=== PATIENT | female | born 1935 | race Caucasian/White ===

== ENCOUNTER 2017-09-11 15:26 | Inpatient (IN) | payer OTHER, MEDICARE ==
[~2017-09-11] VITALS: Ht 149.9 cm; Wt 63.9 kg
[~2017-09-11 15:26] MED LIST: ALLOPURINOL100 MG PO; ALLOPURINOL300 MG PO; APRESOLINE25 MG PO; APRESOLINE50 MG PO; ASPIR-LOW81 MG PO; ASPIRIN325 MG PO; ATORVASTATIN CA40 MG PO; Ascorbic Acid,Ester- PO; BESIVANCE5 ML LEFT EYE; CATAPRES0.3 MG PO; CLONIDINE HCL0.1 MG PO; CLONIDINE HCL0.2 MG PO; COLACE100 MG PO; Catapres PO; Colace PO; DOXAZOSIN MESYLA2 MG PO; DUREZOL 0.100 DROP/5 LEFT EYE; Ecotrin PO; FISH OIL 1,2001 EAC3 PO; FISH OIL 1,2001 EAC4 PO; FUROSEMIDE20 MG PO; IMDUR60 MG PO; INDOCIN PO; ISOSORBIDE MONO60 MG PO; KLOR-CON M1010 MEQ PO; LASIX20 MG PO; LEVEMIR FL100 UNIT/1 SC; LEVEMIR FL100 UNITS/ SC; LIPITOR40 MG PO; LO-DOSE ASPIRIN81 M1 PO; LOPRESSOR100 M1 PO; LOPRESSOR25 MG PO; LOPRESSOR50 MG PO; LOSARTAN POTASS50 MG PO; Lipitor PO; Lopressor PO; METOPROLOL SUC100 MG PO; NIFEDIPINE ER90 MG PO; NITROGLYCERIN0.4 MG SL; NITROSTAT0.4 MG SL; NOVOLOG 10100 UNITS/ SC; NOVOLOG PE100 UNITS/ SC; NOVOLOG100 UNIT/1 SC; Nitrostat,NitroQuick SL; Omega III EPA + DHA PO; PANTOPRAZOLE SO40 MG PO; PERCOCET 5/31 TABLET PO; PLAVIX75 MG PO; PROCARDIA XL90 MG PO; PROLENSA1.6 ML LEFT EYE; PROTONIX40 MG PO; Procardia XL,Adalat PO; Protonix PO; RESTORIL7.5 MG PO; ROCALTROL0.25 MCG PO; ULORIC40 MG PO; VITAMIN C1000 MG PO; VITAMIN D250000 UNIT PO; VOLTAREN 1% GE100 GM TP; ZINC SULFATE220 M1 PO; ZINC SULFATE220 MG PO; ZINC50 M1 PO; ZYLOPRIM300 MG PO; Zyloprim PO
[2017-09-11 16:04] LABS: HEMATOCRIT 28.7 % (36.0-46.0); MCH 29.1 PG (29.0-34.0); MCHC 33.4 G/DL (30.0-36.0); MEAN PLAT.VOLUME 11.4 uM^3 (9.5-12.4); PLATELET COUNT 159 K/uL (156-360); RBC DIS.WIDTH-CV 13.1 % (11.8-14.6); RBC DIS.WIDTH-SD 41.2 % (39-53); WHITE BLOOD COUNT 7.2 K/uL (4.1-10.2)
[2017-09-11 16:17] LABS: CHLORIDE 108 mEq/L (99-109); POTASSIUM 3.8 mEq/L (3.7-5.4); SODIUM 139 mEq/L (136-147)
[2017-09-11 16:18] LABS: INTER. NORMALIZED RATIO 1.1; MAGNESIUM 1.4 mg/dL (1.3-2.7); PROTHROMBIN TIME 11.8 SEC (10.2-12.9)
[2017-09-11 16:20] LABS: ANION GAP 14 MEQ/L (2-14); PTT 28.9 SEC (25-37)
[2017-09-11 16:22] LABS: GFR ESTIMATE (CALCULATED) 13 mL/min/
[2017-09-11 16:23] LABS: UREA NITROGEN (BUN) 47 mg/dL (9-23)
[2017-09-11 16:27] LABS: TROP-I INTERPRETATION POSITIVE
[2017-09-11 16:28] LABS: GLUCOSE 272 mg/dL (70-99); TROPONIN-I 1.54 ng/mL (0.0-0.30)
[2017-09-11] MEDS ORDERED: NOVOLOG100 UNIT/1 SC (17:50)
[2017-09-11] MEDS ORDERED: DOXAZOSIN MESYLA2 MG PO (18:01)
[2017-09-11] MEDS ORDERED: LOPRESSOR25 MG PO (18:03)
[2017-09-11] MEDS ORDERED: ADVIL PM1 TABLET PO (18:12)
[2017-09-11] MEDS ORDERED: IMDUR60 MG PO (18:16)
[2017-09-11 19:45] VITALS: BP 181/79
[2017-09-11] MEDS ORDERED: LOPRESSOR100 M1 PO (22:11)
[2017-09-11 23:00] VITALS: BP 171/87
[2017-09-11 23:42] LABS: INTER. NORMALIZED RATIO 1.1; PROTHROMBIN TIME 12.2 SEC (10.2-12.9)
[2017-09-11 23:45] LABS: PTT 91.8 SEC (25-37)
[2017-09-12 00:15] LABS: TROP-I INTERPRETATION POSITIVE
[2017-09-12 03:00] VITALS: BP 164/73
[2017-09-12 05:38] LABS: HEMATOCRIT 26.6 % (36.0-46.0); MCH 27.9 PG (29.0-34.0); MCHC 32.3 G/DL (30.0-36.0); MCV 86.4 FL (83-99); MEAN PLAT.VOLUME 10.6 uM^3 (9.5-12.4); PLATELET COUNT 179 K/uL (156-360); RBC DIS.WIDTH-CV 13.2 % (11.8-14.6); RBC DIS.WIDTH-SD 41.1 % (39-53); RED BLOOD COUNT 3.08 M/uL (3.80-5.20); WHITE BLOOD COUNT 5.9 K/uL (4.1-10.2)
[2017-09-12 06:22] LABS: TROP-I INTERPRETATION POSITIVE; TROPONIN-I 2.43 ng/mL (0.0-0.30)
[2017-09-12 06:47] LABS: Estimated Average Glucose 134 mg/dL (70-123); HEMOGLOBIN A1c (GLYCOHEMOGLOB) 6.3 % HGB (Below 5.7)
[2017-09-12 07:34] VITALS: BP 192/86
[2017-09-12 07:42] LABS: POINT-OF-CARE METER ID UU14174216
[2017-09-12 11:26] LABS: POINT-OF-CARE METER ID UU14314088
[2017-09-12 12:14] VITALS: BP 147/79
[2017-09-12 13:30] LABS: TROP-I INTERPRETATION POSITIVE; TROPONIN-I 1.56 ng/mL (0.0-0.30)
[2017-09-12 13:49] LABS: ANION GAP 11 MEQ/L (2-14); CHLORIDE 108 MEQ/L (99-109); GFR ESTIMATE (CALCULATED) 15 mL/min/; POTASSIUM 3.9 MEQ/L (3.7-5.4); SAMPLE HEMOLYSIS CHECK 0; SAMPLE ICTERIC CHECK 0; SAMPLE LIPEMIA CHECK 0; SODIUM 141 MEQ/L (136-147); UREA NITROGEN (BUN) 41 mg/dL (9-23)
[2017-09-12 13:58] LABS: GLUCOSE 101 mg/dL (70-99)
[2017-09-12 16:53] LABS: POINT-OF-CARE METER ID UU14314088
[2017-09-12 17:06] VITALS: BP 149/87
[2017-09-12 18:44] LABS: ADD MIUA? YES; BILIRUBIN NEGATIVE; BLOOD NEGATIVE; COLOR YELLOW ((YELLOW)); GLUCOSE (STRIP) 50; KETONES NEGATIVE; LEUKOCYTES NEGATIVE; NITRITE NEGATIVE; PROTEIN (STRIP) >=500; UROBILINOGEN 0.2 MG/DL (0.2-1.0)
[2017-09-12 18:54] LABS: BACTERIA NONE SEEN /HPF; EPITHELIAL CELLS RARE /HPF; MUCUS TRACE /LPF; RED BLOOD CELLS 0-5 /HPF (0-5); WHITE BLOOD CELLS 0-5 /HPF (0-5)
[2017-09-12 19:00] VITALS: BP 176/64
[2017-09-12 20:54] LABS: POINT-OF-CARE METER ID UU14314088
[2017-09-12 23:00] VITALS: BP 148/56
[2017-09-13 04:30] VITALS: BP 129/60
[2017-09-13 05:39] LABS: EOSINOPHIL (%) 5.1 % (0-5); EOSINOPHIL COUNT 0.3 K/uL (0-0.3); HEMATOCRIT 27.8 % (36.0-46.0); IMMATURE GRANULOCYTE (%) 0.4 % (0.0-0.7); MCH 28.8 PG (29.0-34.0); MCHC 32.4 G/DL (30.0-36.0); MCV 88.8 FL (83-99); MONOCYTE (%) 11.6 % (3-12); MONOCYTE COUNT 0.6 K/uL (0-0.8); NEUTROPHIL (%) 61.4 % (45-76); PLATELET COUNT 168 K/uL (156-360); RBC DIS.WIDTH-CV 13.3 % (11.8-14.6); RBC DIS.WIDTH-SD 43.1 % (39-53); RED BLOOD COUNT 3.13 M/uL (3.80-5.20); WHITE BLOOD COUNT 4.9 K/uL (4.1-10.2)
[2017-09-13 05:55] LABS: INTER. NORMALIZED RATIO 1.1; PROTHROMBIN TIME 11.7 SEC (10.2-12.9)
[2017-09-13 06:00] LABS: PTT 28.2 SEC (25-37)
[2017-09-13 06:02] LABS: ANION GAP 11 MEQ/L (2-14); CHLORIDE 109 MEQ/L (99-109); GFR ESTIMATE (CALCULATED) 14 mL/min/; GLUCOSE 146 mg/dL (70-99); MAGNESIUM 1.4 mg/dl (1.3-2.7); SAMPLE HEMOLYSIS CHECK 0; SAMPLE ICTERIC CHECK 0; SAMPLE LIPEMIA CHECK 0; SODIUM 142 MEQ/L (136-147); UREA NITROGEN (BUN) 41 mg/dL (9-23)
[2017-09-13 07:35] VITALS: BP 168/74
[2017-09-13 08:20] LABS: POINT-OF-CARE METER ID UU14314088
[2017-09-13 11:06] LABS: POINT-OF-CARE METER ID UU14314088
[2017-09-13 11:26] VITALS: BP 146/58
[2017-09-13 15:56] VITALS: BP 152/74
[2017-09-13 16:31] LABS: POINT-OF-CARE METER ID UU13113698
[2017-09-13 18:56] VITALS: BP 153/68
[2017-09-13 20:55] LABS: POINT-OF-CARE METER ID UU13113698
[2017-09-13 23:10] VITALS: BP 139/65
[2017-09-14 03:57] VITALS: BP 158/63
[2017-09-14 05:53] LABS: HEMATOCRIT 25.1 % (36.0-46.0); MCH 28.1 PG (29.0-34.0); MCHC 31.9 G/DL (30.0-36.0); MCV 88.1 FL (83-99); MEAN PLAT.VOLUME 10.9 uM^3 (9.5-12.4); PLATELET COUNT 166 K/uL (156-360); RBC DIS.WIDTH-CV 13.2 % (11.8-14.6); RBC DIS.WIDTH-SD 42.2 % (39-53); RED BLOOD COUNT 2.85 M/uL (3.80-5.20); WHITE BLOOD COUNT 4.9 K/uL (4.1-10.2)
[2017-09-14 07:04] LABS: ANION GAP 10 MEQ/L (2-14); CHLORIDE 108 MEQ/L (99-109); GFR ESTIMATE (CALCULATED) 14 mL/min/; GLUCOSE 119 mg/dL (70-99); SAMPLE HEMOLYSIS CHECK 0; SAMPLE ICTERIC CHECK 0; SAMPLE LIPEMIA CHECK 0; SODIUM 140 MEQ/L (136-147); UREA NITROGEN (BUN) 45 mg/dL (9-23)
[2017-09-14 07:40] LABS: POINT-OF-CARE METER ID UU14174216
[2017-09-14 09:17] VITALS: BP 184/74
[2017-09-14 09:43] VITALS: BP 148/67
[2017-09-14 10:04] LABS: MAGNESIUM 1.4 mg/dl (1.3-2.7)
[2017-09-14 11:51] LABS: POINT-OF-CARE METER ID UU14174216
[2017-09-14 11:56] VITALS: BP 142/70
[2017-09-14 16:36] LABS: POINT-OF-CARE METER ID UU14174216
[2017-09-14 16:50] VITALS: BP 146/71
[2017-09-14 19:33] VITALS: BP 160/78
[2017-09-14] MEDS ORDERED: CLOPIDOGREL75 MG PO (21:25)
[2017-09-14] MEDS ORDERED: PLAVIX75 MG PO (21:34)
== END 2017-09-14 22:20 | disposition home health service (06) | DRG 281 ==
LOC: EME 15:26 → 4EAST 17:05 → EDOF 17:05 → ENRESERV 17:21 → 4EAST 19:48
PROVIDERS: Emergency Medicine; Internal Medicine; Internal Medicine Cardiovascular Disease; Internal Medicine Nephrology
DX: I21.4 Non-ST elevation (NSTEMI) myocardial infarction (principal); N17.9 Acute kidney failure, unspecified; E87.2 Acidosis; N18.5 Chronic kidney disease, stage 5; I13.11 Hypertensive heart and chronic kidney disease without heart failure, with stage 5 chronic kidney disease, or end stage renal disease; R00.0 Tachycardia, unspecified; I44.4 Left anterior fascicular block; E78.5 Hyperlipidemia, unspecified; E11.22 Type 2 diabetes mellitus with diabetic chronic kidney disease; D63.1 Anemia in chronic kidney disease; I25.10 Atherosclerotic heart disease of native coronary artery without angina pectoris; I12.9 Hypertensive chronic kidney disease with stage 1 through stage 4 chronic kidney disease, or unspecified chronic kidney disease; I27.20 Pulmonary hypertension, unspecified; I35.0 Nonrheumatic aortic (valve) stenosis; K21.9 Gastro-esophageal reflux disease without esophagitis; Z95.5 Presence of coronary angioplasty implant and graft; Z95.1 Presence of aortocoronary bypass graft; Z82.49 Family history of ischemic heart disease and other diseases of the circulatory system; Z91.041 Radiographic dye allergy status; Z90.49 Acquired absence of other specified parts of digestive tract; Z91.19 Patient's noncompliance with other medical treatment and regimen
CPT/HCPCS: 36415; 71020; 76770; 80048; 80069; 81003; 82607 GA; 82746 GA; 82948; 83036; 83540; 83735; 83880; 84100; 84466; 84484; 85025; 85027; 85045; 85610; 85730; 93005; 93306; 93975; 94799; 99281; 99285; J0881; J1815; J7030

== ENCOUNTER 2017-10-12 16:20 | Inpatient (IN) | payer OTHER, MEDICARE ==
[~2017-10-12] VITALS: Ht 149.9 cm; Wt 71.2 kg
[~2017-10-12 16:20] MED LIST changes: +ADVIL PM1 TABLET PO; +APRESOLINE100 MG PO; -APRESOLINE25 MG PO; +CARDURA2 M1 PO; +CLOPIDOGREL75 MG PO
[2017-10-12 17:19] LABS: CHLORIDE 119 mEq/L (99-109); POTASSIUM 3.9 mEq/L (3.7-5.4); SODIUM 143 mEq/L (136-147)
[2017-10-12 17:20] LABS: GLUCOSE 86 mg/dL (70-99)
[2017-10-12 17:22] LABS: ANION GAP 9 MEQ/L (2-14)
[2017-10-12 17:24] LABS: GFR ESTIMATE (CALCULATED) 12 mL/min/
[2017-10-12 17:25] LABS: UREA NITROGEN (BUN) 78 mg/dL (9-23)
[2017-10-12 17:26] LABS: HEMATOCRIT 29.5 % (36.0-46.0); MCH 28.2 PG (29.0-34.0); MCHC 30.8 G/DL (30.0-36.0); MCV 91.3 FL (83-99); RBC DIS.WIDTH-CV 14.1 % (11.8-14.6); RBC DIS.WIDTH-SD 47.1 % (39-53); RED BLOOD COUNT 3.23 M/uL (3.80-5.20); WHITE BLOOD COUNT 4.9 K/uL (4.1-10.2)
[2017-10-12 17:31] LABS: TROP-I INTERPRETATION NEGATIVE; TROPONIN-I 0.03 ng/mL (0.0-0.30)
[2017-10-12 17:43] LABS: MEAN PLAT.VOLUME 11.4 uM^3 (9.5-12.4); PLAT.SUFFICIENCY DECREASED; PLATELET CLUMPS N; PLATELET COUNT 113 K/uL (156-360)
[2017-10-12] MEDS ORDERED: PLAVIX75 MG PO (19:31)
[2017-10-12] MEDS ORDERED: CIPROFLOXACIN H10 ML BOTH EYES (19:31)
[2017-10-12 23:55] VITALS: BP 173/73
[2017-10-13 03:56] LABS: ADD MIUA? NO; BILIRUBIN NEGATIVE; BLOOD NEGATIVE; COLOR STRAW ((YELLOW)); GLUCOSE (STRIP) NEGATIVE; KETONES NEGATIVE; LEUKOCYTES NEGATIVE; NITRITE NEGATIVE; PROTEIN (STRIP) 30; SPECIFIC GRAVITY 1.005 (1.000-1.030); UCUL ADDED? NO; UROBILINOGEN 0.2 MG/DL (0.2-1.0)
[2017-10-13 06:05] LABS: HEMATOCRIT 28.3 % (36.0-46.0); MCH 28.1 PG (29.0-34.0); MCHC 30.4 G/DL (30.0-36.0); MCV 92.5 FL (83-99); PLATELET COUNT 106 K/uL (156-360); RBC DIS.WIDTH-CV 14.3 % (11.8-14.6); RBC DIS.WIDTH-SD 48.1 % (39-53); RED BLOOD COUNT 3.06 M/uL (3.80-5.20); WHITE BLOOD COUNT 4.4 K/uL (4.1-10.2)
[2017-10-13 06:52] LABS: ANION GAP 10 MEQ/L (2-14); CHLORIDE 116 MEQ/L (99-109); GFR ESTIMATE (CALCULATED) 11 mL/min/; GLUCOSE 123 mg/dL (70-99); SAMPLE HEMOLYSIS CHECK 0; SAMPLE ICTERIC CHECK 0; SAMPLE LIPEMIA CHECK 0; SODIUM 144 MEQ/L (136-147); UREA NITROGEN (BUN) 81 mg/dL (9-23)
[2017-10-13 07:42] LABS: Estimated Average Glucose 108 mg/dL (70-123); HEMOGLOBIN A1c (GLYCOHEMOGLOB) 5.4 % HGB (Below 5.7)
[2017-10-13 08:21] VITALS: BP 187/79
[2017-10-13 11:44] LABS: POINT-OF-CARE METER ID UU13113725
[2017-10-13 12:19] VITALS: BP 193/80
[2017-10-13 12:48] VITALS: BP 134/56
[2017-10-13 15:25] VITALS: BP 161/74
[2017-10-13 16:17] LABS: POINT-OF-CARE METER ID UU13113725
[2017-10-13 19:56] VITALS: BP 133/61
[2017-10-13 20:56] LABS: POINT-OF-CARE METER ID UU13113725
[2017-10-13 23:47] VITALS: BP 142/52
[2017-10-14 02:20] LABS: POINT-OF-CARE METER ID UU13113774
[2017-10-14 03:43] VITALS: BP 130/62
[2017-10-14 06:12] LABS: POINT-OF-CARE METER ID UU13113774
[2017-10-14 06:36] LABS: ANION GAP 12 MEQ/L (2-14); CHLORIDE 116 MEQ/L (99-109); GFR ESTIMATE (CALCULATED) 12 mL/min/; POTASSIUM 3.8 MEQ/L (3.7-5.4); SAMPLE HEMOLYSIS CHECK 0; SAMPLE ICTERIC CHECK 0; SAMPLE LIPEMIA CHECK 0; SODIUM 146 MEQ/L (136-147); UREA NITROGEN (BUN) 77 mg/dL (9-23)
[2017-10-14 06:39] LABS: GLUCOSE 29 mg/dL (70-99)
[2017-10-14 07:26] VITALS: BP 138/58
[2017-10-14 11:38] VITALS: BP 170/52
[2017-10-14 11:58] LABS: POINT-OF-CARE METER ID UU13113725
[2017-10-14 15:17] VITALS: BP 138/70
[2017-10-14 15:54] LABS: POINT-OF-CARE METER ID UU13113725
[2017-10-14 19:10] VITALS: BP 156/64
[2017-10-14 21:24] LABS: POINT-OF-CARE METER ID UU13113725
[2017-10-14 23:37] VITALS: BP 149/66
[2017-10-15 04:36] VITALS: BP 122/58
[2017-10-15 06:04] LABS: POINT-OF-CARE METER ID UU13113774
[2017-10-15 06:10] LABS: EOSINOPHIL (%) 4.2 % (0-5); EOSINOPHIL COUNT 0.2 K/uL (0-0.3); HEMATOCRIT 27.2 % (36.0-46.0); IMMATURE GRANULOCYTE (%) 0.2 % (0.0-0.7); MCH 27.7 PG (29.0-34.0); MCHC 30.1 G/DL (30.0-36.0); MCV 91.9 FL (83-99); MEAN PLAT.VOLUME 11.8 uM^3 (9.5-12.4); MONOCYTE (%) 8.6 % (3-12); MONOCYTE COUNT 0.4 K/uL (0-0.8); NEUTROPHIL (%) 65.6 % (45-76); PLATELET COUNT 100 K/uL (156-360); RBC DIS.WIDTH-SD 47.1 % (39-53); RED BLOOD COUNT 2.96 M/uL (3.80-5.20); WHITE BLOOD COUNT 4.5 K/uL (4.1-10.2)
[2017-10-15 06:32] LABS: ANION GAP 13 MEQ/L (2-14); CHLORIDE 115 MEQ/L (99-109); GFR ESTIMATE (CALCULATED) 12 mL/min/; POTASSIUM 3.8 MEQ/L (3.7-5.4); SAMPLE HEMOLYSIS CHECK 0; SAMPLE ICTERIC CHECK 0; SAMPLE LIPEMIA CHECK 0; SODIUM 145 MEQ/L (136-147); UREA NITROGEN (BUN) 73 mg/dL (9-23)
[2017-10-15 06:34] LABS: GLUCOSE 87 mg/dL (70-99)
[2017-10-15 08:02] VITALS: BP 138/83
[2017-10-15 11:35] LABS: POINT-OF-CARE METER ID UU13113725
[2017-10-15 11:54] VITALS: BP 136/77
[2017-10-15 15:36] VITALS: BP 143/76
[2017-10-15 16:15] LABS: POINT-OF-CARE METER ID UU13113725
[2017-10-15 19:27] VITALS: BP 154/69
[2017-10-15 21:20] LABS: POINT-OF-CARE METER ID UU13113774
[2017-10-15 23:33] VITALS: BP 121/59
[2017-10-16 03:23] VITALS: BP 135/72
[2017-10-16 06:11] LABS: POINT-OF-CARE METER ID UU13113774
[2017-10-16 06:25] LABS: ANION GAP 10 MEQ/L (2-14); CHLORIDE 117 MEQ/L (99-109); GFR ESTIMATE (CALCULATED) 14 mL/min/; GLUCOSE 102 mg/dL (70-99); POTASSIUM 3.8 MEQ/L (3.7-5.4); SAMPLE HEMOLYSIS CHECK 0; SAMPLE ICTERIC CHECK 0; SAMPLE LIPEMIA CHECK 0; SODIUM 145 MEQ/L (136-147); UREA NITROGEN (BUN) 63 mg/dL (9-23)
[2017-10-16 07:15] VITALS: BP 156/74
[2017-10-16 11:00] VITALS: BP 133/63
[2017-10-16 11:45] LABS: POINT-OF-CARE METER ID UU13113725
[2017-10-16 16:12] LABS: POINT-OF-CARE METER ID UU13113774
[2017-10-16 16:38] VITALS: BP 150/88
[2017-10-16 19:32] VITALS: BP 173/75
[2017-10-16 21:09] LABS: POINT-OF-CARE METER ID UU13113725
[2017-10-16 21:42] LABS: POINT-OF-CARE METER ID UU13113725
[2017-10-16 21:42] LABS: POINT-OF-CARE METER ID UU13113774
[2017-10-16 23:52] VITALS: BP 161/70
[2017-10-17 03:51] VITALS: BP 177/75
[2017-10-17 04:18] VITALS: BP 150/60
[2017-10-17 06:01] LABS: POINT-OF-CARE METER ID UU13113725
[2017-10-17 07:17] VITALS: BP 170/52
[2017-10-17 09:18] LABS: ANION GAP 10 MEQ/L (2-14); CHLORIDE 115 MEQ/L (99-109); GFR ESTIMATE (CALCULATED) 16 mL/min/; GLUCOSE 151 mg/dL (70-99); POTASSIUM 3.8 MEQ/L (3.7-5.4); SAMPLE HEMOLYSIS CHECK 0; SAMPLE ICTERIC CHECK 0; SAMPLE LIPEMIA CHECK 0; SODIUM 144 MEQ/L (136-147); UREA NITROGEN (BUN) 59 mg/dL (9-23)
[2017-10-17 11:15] VITALS: BP 177/77
[2017-10-17 15:42] VITALS: BP 180/76
[2017-10-17 15:58] LABS: POINT-OF-CARE METER ID UU13113725
[2017-10-17] MEDS ORDERED: LEVEMIR100 UNIT/2 SC (18:54)
== END 2017-10-17 20:35 | disposition home or self-care (01) | DRG 292 ==
LOC: EME 16:20 → 5EAST 21:45 → EDOF 21:45 → ENRESERV 22:30 → 5EAST 23:41
PROVIDERS: Internal Medicine; Internal Medicine Nephrology
DX: I50.43 Acute on chronic combined systolic (congestive) and diastolic (congestive) heart failure (principal); I11.0 Hypertensive heart disease with heart failure; E78.5 Hyperlipidemia, unspecified; E11.21 Type 2 diabetes mellitus with diabetic nephropathy; I13.2 Hypertensive heart and chronic kidney disease with heart failure and with stage 5 chronic kidney disease, or end stage renal disease; I25.10 Atherosclerotic heart disease of native coronary artery without angina pectoris; M19.90 Unspecified osteoarthritis, unspecified site; N18.5 Chronic kidney disease, stage 5; D63.1 Anemia in chronic kidney disease; Z79.4 Long term (current) use of insulin; E11.649 Type 2 diabetes mellitus with hypoglycemia without coma; N25.81 Secondary hyperparathyroidism of renal origin; E11.22 Type 2 diabetes mellitus with diabetic chronic kidney disease; K21.9 Gastro-esophageal reflux disease without esophagitis; E66.9 Obesity, unspecified; Z96.653 Presence of artificial knee joint, bilateral; Z68.31 Body mass index [BMI] 31.0-31.9, adult; Z95.5 Presence of coronary angioplasty implant and graft; Z95.1 Presence of aortocoronary bypass graft; Z90.49 Acquired absence of other specified parts of digestive tract; I25.2 Old myocardial infarction; M06.9 Rheumatoid arthritis, unspecified
CPT/HCPCS: 71020; 80048; 80069; 81003; 82948; 83036; 84484; 85025; 85027; 87493; 87506; 93005; 99281; 99285; J0881; J1644; J1815; J1940

== ENCOUNTER 2017-11-12 11:01 | Inpatient (IN) | payer OTHER, MEDICARE ==
[~2017-11-12] VITALS: Ht 149.9 cm; Wt 61.7 kg
[~2017-11-12 11:01] MED LIST changes: +CIPROFLOXACIN H10 ML BOTH EYES; +LEVEMIR100 UNIT/2 SC
[2017-11-12 11:50] LABS: BASOPHIL (%) 0.5 % (0-1); EOSINOPHIL (%) 2.9 % (0-5); EOSINOPHIL COUNT 0.1 K/uL (0-0.3); HEMATOCRIT 29.7 % (36.0-46.0); HEMOGLOBIN 9.6 G/DL (11.9-15.5); IMMATURE GRANULOCYTE (%) 0.7 % (0.0-0.7); LYMPHOCYTE (%) 20.8 % (15-42); LYMPHOCYTE COUNT 0.9 K/uL (1.0-2.8); MCH 27.3 PG (29.0-34.0); MCHC 32.3 G/DL (30.0-36.0); MONOCYTE (%) 8.8 % (3-12); MONOCYTE COUNT 0.4 K/uL (0-0.8); NEUTROPHIL (%) 66.3 % (45-76); NEUTROPHIL COUNT 2.8 K/uL (1.8-6.4); PLATELET COUNT 159 K/uL (156-360); RBC DIS.WIDTH-SD 39.7 % (39-53); RED BLOOD COUNT 3.52 M/uL (3.80-5.20); WHITE BLOOD COUNT 4.2 K/uL (4.1-10.2)
[2017-11-12 11:55] LABS: ALBUMIN 3.6 g/dL (3.2-4.8); CHLORIDE 105 mEq/L (99-109); POTASSIUM 3.9 mEq/L (3.7-5.4); SODIUM 143 mEq/L (136-147)
[2017-11-12 11:56] LABS: MCV 84.4 FL (83-99)
[2017-11-12 11:57] LABS: GLUCOSE 152 mg/dL (70-99); TOTAL PROTEIN 6.7 g/dL (6.4-8.3)
[2017-11-12 11:59] LABS: TOTAL BILIRUBIN 0.6 mg/dL (0.0-1.0)
[2017-11-12 12:01] LABS: ALKALINE PHOSPHATASE 97 IU/L (3-129); CREATININE 3.5 mg/dL (0.6-1.3); GFR ESTIMATE (CALCULATED) 13 mL/min/
[2017-11-12 12:02] LABS: UREA NITROGEN (BUN) 59 mg/dL (9-23)
[2017-11-12 12:03] LABS: AST (GOT) 55 IU/L (2-34)
[2017-11-12 12:04] LABS: ALT (GPT) 23 IU/L (3-49)
[2017-11-12 12:47] LABS: TROP-I INTERPRETATION INDETERMINATE; TROPONIN-I 0.45 ng/mL (0.0-0.30)
[2017-11-12 13:07] LABS: MAGNESIUM 1.6 mg/dl (1.3-2.7)
[2017-11-12 13:43] LABS: APPEARANCE SL.HAZY ((CLEAR)); BILIRUBIN NEGATIVE; BLOOD NEGATIVE; COLOR YELLOW ((YELLOW)); GLUCOSE (STRIP) NEGATIVE; KETONES NEGATIVE; LEUKOCYTES NEGATIVE; NITRITE NEGATIVE; PROTEIN (STRIP) 100; UROBILINOGEN 0.2 MG/DL (0.2-1.0)
[2017-11-12 13:52] LABS: BACTERIA RARE /HPF; EPITHELIAL CELLS 1+ /HPF; MUCUS TRACE /LPF; RED BLOOD CELLS 0-5 /HPF (0-5); UCUL ADDED? YES
[2017-11-12] MEDS ORDERED: FUROSEMIDE20 MG PO (16:08)
[2017-11-12] MEDS ORDERED: LEVEMIR FL100 UNIT/1 SC (16:08)
[2017-11-12] MEDS ORDERED: K-DUR20 MEQ PO (16:09)
[2017-11-12 17:52] VITALS: BP 177/74
[2017-11-12 20:00] VITALS: BP 166/74
[2017-11-12 20:00] LABS: TROP-I INTERPRETATION INDETERMINATE; TROPONIN-I 0.39 ng/mL (0.0-0.30)
[2017-11-13] VITALS (7 sets, daily range): BP systolic 132–185; BP diastolic 64–94
[2017-11-14 03:00] VITALS: BP 158/72
[2017-11-14 04:54] LABS: CHLORIDE 109 mEq/L (99-109); POTASSIUM 3.8 mEq/L (3.7-5.4); SODIUM 143 mEq/L (136-147)
[2017-11-14 04:56] LABS: GLUCOSE 78 mg/dL (70-99)
[2017-11-14 05:00] LABS: CREATININE 3.3 mg/dL (0.6-1.3); GFR ESTIMATE (CALCULATED) 14 mL/min/; UREA NITROGEN (BUN) 51 mg/dL (9-23)
[2017-11-14 08:06] VITALS: BP 160/60
[2017-11-14 11:33] VITALS: BP 124/58
[2017-11-14] MEDS ORDERED: LOPRESSOR100 M1 PO (14:11)
[2017-11-18] MEDS ORDERED: IMDUR60 MG PO (10:41)
[2017-11-18] MEDS ORDERED: TOPROL XL100 MG PO (10:43)
[2017-11-18] MEDS ORDERED: LEVEMIR FL100 UNIT/1 SC (10:45)
== END 2017-11-14 14:48 | disposition home or self-care (01) | DRG 312 ==
LOC: EME 11:01 → EDOF 15:13 → ENRESERV 15:38 → 4EAST 17:33
PROVIDERS: Emergency Medicine; Internal Medicine; Internal Medicine Nephrology
DX: R55 Syncope and collapse (principal); I24.8 Other forms of acute ischemic heart disease; I12.0 Hypertensive chronic kidney disease with stage 5 chronic kidney disease or end stage renal disease; I25.10 Atherosclerotic heart disease of native coronary artery without angina pectoris; I16.0 Hypertensive urgency; E78.5 Hyperlipidemia, unspecified; R01.1 Cardiac murmur, unspecified; D63.1 Anemia in chronic kidney disease; E11.21 Type 2 diabetes mellitus with diabetic nephropathy; I08.0 Rheumatic disorders of both mitral and aortic valves; E11.22 Type 2 diabetes mellitus with diabetic chronic kidney disease; N18.5 Chronic kidney disease, stage 5; I49.5 Sick sinus syndrome; Z96.653 Presence of artificial knee joint, bilateral; K21.9 Gastro-esophageal reflux disease without esophagitis; Z88.8 Allergy status to other drugs, medicaments and biological substances; Z91.041 Radiographic dye allergy status; Z95.5 Presence of coronary angioplasty implant and graft; Z95.1 Presence of aortocoronary bypass graft; Z90.49 Acquired absence of other specified parts of digestive tract; Z79.82 Long term (current) use of aspirin; Z79.4 Long term (current) use of insulin
CPT/HCPCS: 70450; 74176; 80048; 80053; 81003; 82948; 83735; 84484; 85025; 87086; 93005; 99281; 99285; J1815; J7040

== ENCOUNTER 2017-11-23 09:34 | Day surgery (SDC) | payer OTHER, MEDICARE ==
[~2017-11-23] VITALS: Ht 149.9 cm; Wt 60.7 kg
[~2017-11-23 09:34] MED LIST changes: +K-DUR20 MEQ PO; +TOPROL XL100 MG PO
[2017-11-23 10:15] VITALS: BP 161/59
[2017-11-23 11:01] LABS: HEMATOCRIT 29.2 % (36.0-46.0); HEMOGLOBIN 9.5 G/DL (11.9-15.5); MCH 27.5 PG (29.0-34.0); MCHC 32.5 G/DL (30.0-36.0); MCV 84.6 FL (83-99); PLATELET COUNT 129 K/uL (156-360); RBC DIS.WIDTH-CV 13.2 % (11.8-14.6); RBC DIS.WIDTH-SD 40.5 % (39-53); RED BLOOD COUNT 3.45 M/uL (3.80-5.20); WHITE BLOOD COUNT 5.1 K/uL (4.1-10.2)
[2017-11-23 11:15] LABS: CHLORIDE 109 mEq/L (99-109); POTASSIUM 4.3 mEq/L (3.7-5.4); SODIUM 143 mEq/L (136-147)
[2017-11-23 11:17] LABS: GLUCOSE 192 mg/dL (70-99)
[2017-11-23 11:21] LABS: CREATININE 2.7 mg/dL (0.6-1.3); GFR ESTIMATE (CALCULATED) 18 mL/min/
[2017-11-23 11:22] LABS: UREA NITROGEN (BUN) 45 mg/dL (9-23)
[2017-11-23] MEDS ORDERED: NORCO 5/3251 TABLET PO (14:12)
[2017-11-23 15:55] VITALS: BP 123/58
[2017-11-23 16:43] VITALS: BP 121/58
[2017-11-23 19:40] VITALS: BP 120/59
== END 2017-11-23 19:45 | disposition home or self-care (01) ==
LOC: SDC 09:34
PROVIDERS: Surgery
DX: I13.2 Hypertensive heart and chronic kidney disease with heart failure and with stage 5 chronic kidney disease, or end stage renal disease (principal); E11.22 Type 2 diabetes mellitus with diabetic chronic kidney disease; N18.6 End stage renal disease; I50.9 Heart failure, unspecified; Z79.4 Long term (current) use of insulin; Z79.82 Long term (current) use of aspirin; I25.10 Atherosclerotic heart disease of native coronary artery without angina pectoris; I25.2 Old myocardial infarction; Z95.1 Presence of aortocoronary bypass graft; E78.00 Pure hypercholesterolemia, unspecified
CPT/HCPCS: 80048; 82948; 85027; C1768; J0690; J1644; J2405; J2720; J3010

== ENCOUNTER 2018-02-15 13:22 | Inpatient (IN) | payer OTHER, MEDICARE ==
[~2018-02-15] VITALS: Ht 149.9 cm; Wt 63.9 kg
[~2018-02-15 13:22] MED LIST changes: -CARDURA2 M1 PO; +CARDURA8 MG PO; +NORCO 5/3251 TABLET PO; -TOPROL XL100 MG PO
[2018-02-15 14:00] LABS: HEMATOCRIT 26.3 % (36.0-46.0); HEMOGLOBIN 8.4 G/DL (11.9-15.5); MCH 25.8 PG (29.0-34.0); MCHC 31.9 G/DL (30.0-36.0); MCV 80.9 FL (83-99); PLATELET COUNT 130 K/uL (156-360); RBC DIS.WIDTH-CV 14.7 % (11.8-14.6); RBC DIS.WIDTH-SD 43.4 % (39-53); RED BLOOD COUNT 3.25 M/uL (3.80-5.20); WHITE BLOOD COUNT 2.6 K/uL (4.1-10.2)
[2018-02-15 14:08] LABS: CHLORIDE 102 mEq/L (99-109); SODIUM 145 mEq/L (136-147)
[2018-02-15 14:09] LABS: GLUCOSE 175 mg/dL (70-99); POTASSIUM 2.6 mEq/L (3.7-5.4)
[2018-02-15 14:13] LABS: CREATININE 3.8 mg/dL (0.6-1.3); GFR ESTIMATE (CALCULATED) 12 mL/min/
[2018-02-15 14:14] LABS: UREA NITROGEN (BUN) 43 mg/dL (9-23)
[2018-02-15 16:47] LABS: ALBUMIN 3.5 g/dL (3.2-4.8)
[2018-02-15 16:50] LABS: TOTAL PROTEIN 6.1 g/dL (6.4-8.3)
[2018-02-15 16:52] LABS: TOTAL BILIRUBIN 0.7 mg/dL (0.0-1.0)
[2018-02-15 16:53] LABS: ALKALINE PHOSPHATASE 76 IU/L (3-129)
[2018-02-15 16:55] LABS: AST (GOT) 15 IU/L (2-34)
[2018-02-15 16:56] LABS: ALT (GPT) < 3 IU/L (3-49)
[2018-02-15] MEDS ORDERED: HYDROMORPHONE HC2 MG PO (19:32)
[2018-02-15] MEDS ORDERED: PROCRIT10000 UNI1 IV (19:33)
[2018-02-15 21:30] VITALS: BP 147/68
[2018-02-15 21:57] VITALS: BP 147/68
[2018-02-16 04:01] VITALS: BP 145/67
[2018-02-16 06:17] LABS: CHLORIDE 106 MEQ/L (99-109); CREATININE 3.5 MG/DL (0.6-1.3); GFR ESTIMATE (CALCULATED) 13 mL/min/; SODIUM 146 MEQ/L (136-147); UREA NITROGEN (BUN) 39 mg/dL (9-23)
[2018-02-16 06:34] LABS: GLUCOSE 106 mg/dL (70-99)
[2018-02-16 08:41] VITALS: BP 148/66
[2018-02-16 11:25] VITALS: BP 133/61
[2018-02-16 15:06] VITALS: BP 134/63
[2018-02-16 18:23] LABS: ANTI-HEPATITIS B CORE (TOTAL) Nonreactive
[2018-02-16 18:24] LABS: HEPATITIS B SURFACE ANTIGEN Nonreactive
[2018-02-16 18:25] LABS: HEPATITIS B SURFACE ANTIBODY Nonreactive; HEPATITIS C ANTIBODY Nonreactive
[2018-02-16 23:47] VITALS: BP 130/86
[2018-02-17 08:13] VITALS: BP 129/61
[2018-02-17 10:53] LABS: ALBUMIN 3.1 G/DL (3.2-4.8); CHLORIDE 106 MEQ/L (99-109); GLUCOSE 159 mg/dL (70-99); SODIUM 142 MEQ/L (136-147)
[2018-02-17 11:00] LABS: CREATININE 2.2 MG/DL (0.6-1.3); GFR ESTIMATE (CALCULATED) 23 mL/min/; PHOSPHORUS 1.8 mg/dL (2.5-4.9); POTASSIUM 4.1 MEQ/L (3.7-5.4); UREA NITROGEN (BUN) 18 mg/dL (9-23)
[2018-02-17 16:13] LABS: BASOPHIL (%) 0.9 % (0-1); EOSINOPHIL (%) 4.1 % (0-5); EOSINOPHIL COUNT 0.1 K/uL (0-0.3); HEMATOCRIT 27.3 % (36.0-46.0); HEMOGLOBIN 8.3 G/DL (11.9-15.5); IMMATURE GRANULOCYTE (%) 0.6 % (0.0-0.7); LYMPHOCYTE (%) 28.1 % (15-42); LYMPHOCYTE COUNT 0.9 K/uL (1.0-2.8); MCH 25.4 PG (29.0-34.0); MCHC 30.4 G/DL (30.0-36.0); MCV 83.5 FL (83-99); MONOCYTE (%) 11.7 % (3-12); MONOCYTE COUNT 0.4 K/uL (0-0.8); NEUTROPHIL (%) 54.6 % (45-76); NEUTROPHIL COUNT 1.7 K/uL (1.8-6.4); PLATELET COUNT 126 K/uL (156-360); RBC DIS.WIDTH-CV 14.8 % (11.8-14.6); RBC DIS.WIDTH-SD 44.7 % (39-53); RED BLOOD COUNT 3.27 M/uL (3.80-5.20); WHITE BLOOD COUNT 3.2 K/uL (4.1-10.2)
[2018-02-17 16:30] VITALS: BP 127/70
[2018-02-17 19:32] VITALS: BP 114/57
[2018-02-17 23:26] VITALS: BP 140/64
[2018-02-18 04:37] VITALS: BP 108/53
[2018-02-18 07:06] LABS: CHLORIDE 103 MEQ/L (99-109); GFR ESTIMATE (CALCULATED) 25 mL/min/; PHOSPHORUS 1.8 mg/dL (2.5-4.9); POTASSIUM 4.2 MEQ/L (3.7-5.4); SODIUM 139 MEQ/L (136-147); UREA NITROGEN (BUN) 10 mg/dL (9-23)
[2018-02-18 07:07] LABS: GLUCOSE 112 mg/dL (70-99)
[2018-02-18 08:18] VITALS: BP 116/67
[2018-02-18 11:46] VITALS: BP 138/64
[2018-02-18 16:33] VITALS: BP 140/60
[2018-02-18 19:44] VITALS: BP 157/64
[2018-02-19 00:10] VITALS: BP 121/57
[2018-02-19 05:54] LABS: ALBUMIN 3.1 G/DL (3.2-4.8); CHLORIDE 102 MEQ/L (99-109); GFR ESTIMATE (CALCULATED) 19 mL/min/; GLUCOSE 120 mg/dL (70-99); PHOSPHORUS 2.3 mg/dL (2.5-4.9); POTASSIUM 4.4 MEQ/L (3.7-5.4); SODIUM 138 MEQ/L (136-147); UREA NITROGEN (BUN) 15 mg/dL (9-23)
[2018-02-19 05:55] LABS: CREATININE 2.6 MG/DL (0.6-1.3)
[2018-02-19 08:10] VITALS: BP 110/56
[2018-02-19 15:36] VITALS: BP 130/62
[2018-02-19 23:51] VITALS: BP 132/56
[2018-02-20 08:10] LABS: ALBUMIN 3.2 G/DL (3.2-4.8); CHLORIDE 103 MEQ/L (99-109); POTASSIUM 4.5 MEQ/L (3.7-5.4); SODIUM 139 MEQ/L (136-147)
[2018-02-20 08:17] LABS: GFR ESTIMATE (CALCULATED) 15 mL/min/; GLUCOSE 144 mg/dL (70-99); PHOSPHORUS 2.6 mg/dL (2.5-4.9); UREA NITROGEN (BUN) 20 mg/dL (9-23)
[2018-02-20 08:23] LABS: CREATININE 3.1 MG/DL (0.6-1.3)
[2018-02-20 08:46] LABS: BASOPHIL (%) 0.3 % (0-1); EOSINOPHIL (%) 2.3 % (0-5); EOSINOPHIL COUNT 0.1 K/uL (0-0.3); HEMOGLOBIN 7.4 G/DL (11.9-15.5); IMMATURE GRANULOCYTE (%) 0.5 % (0.0-0.7); LYMPHOCYTE COUNT 0.7 K/uL (1.0-2.8); MCH 26.7 PG (29.0-34.0); MCHC 30.8 G/DL (30.0-36.0); MCV 86.6 FL (83-99); MONOCYTE (%) 10.3 % (3-12); MONOCYTE COUNT 0.4 K/uL (0-0.8); NEUTROPHIL (%) 68.6 % (45-76); NEUTROPHIL COUNT 2.7 K/uL (1.8-6.4); PLATELET COUNT 105 K/uL (156-360); RBC DIS.WIDTH-CV 14.8 % (11.8-14.6); RBC DIS.WIDTH-SD 45.7 % (39-53); RED BLOOD COUNT 2.77 M/uL (3.80-5.20)
[2018-02-20 11:46] VITALS: BP 162/72
[2018-02-20 15:13] VITALS: BP 125/58
[2018-02-20 23:38] VITALS: BP 1341/60
[2018-02-21] VITALS (11 sets, daily range): BP systolic 118–158; BP diastolic 56–78
[2018-02-21 06:14] LABS: BASOPHIL (%) 0.6 % (0-1); EOSINOPHIL (%) 2.7 % (0-5); EOSINOPHIL COUNT 0.1 K/uL (0-0.3); HEMATOCRIT 23.8 % (36.0-46.0); HEMOGLOBIN 7.2 G/DL (11.9-15.5); IMMATURE GRANULOCYTE (%) 0.4 % (0.0-0.7); LYMPHOCYTE (%) 16.7 % (15-42); LYMPHOCYTE COUNT 0.8 K/uL (1.0-2.8); MCH 26.1 PG (29.0-34.0); MCHC 30.3 G/DL (30.0-36.0); MCV 86.2 FL (83-99); MONOCYTE (%) 11.6 % (3-12); MONOCYTE COUNT 0.6 K/uL (0-0.8); NEUTROPHIL COUNT 3.2 K/uL (1.8-6.4); PLATELET COUNT 123 K/uL (156-360); RBC DIS.WIDTH-CV 14.7 % (11.8-14.6); RBC DIS.WIDTH-SD 45.1 % (39-53); RED BLOOD COUNT 2.76 M/uL (3.80-5.20); WHITE BLOOD COUNT 4.7 K/uL (4.1-10.2)
[2018-02-21 06:30] LABS: CHLORIDE 101 MEQ/L (99-109); GFR ESTIMATE (CALCULATED) 22 mL/min/; POTASSIUM 4.4 MEQ/L (3.7-5.4); SODIUM 135 MEQ/L (136-147); UREA NITROGEN (BUN) 12 mg/dL (9-23)
[2018-02-21 06:47] LABS: CREATININE 2.3 MG/DL (0.6-1.3); GLUCOSE 104 mg/dL (70-99)
[2018-02-22 00:01] VITALS: BP 142/65
[2018-02-22 01:22] LABS: HEMATOCRIT 29.6 % (36.0-46.0)
[2018-02-22 01:25] LABS: HEMOGLOBIN 9.7 G/DL (11.9-15.5)
[2018-02-22 07:26] VITALS: BP 150/80
[2018-02-22 07:44] VITALS: BP 155/68
== END 2018-02-22 10:02 | disposition home or self-care (01) | DRG 683 ==
LOC: EME 13:22 → EDOF 18:19 → 3EAST 18:19 → ENRESERV 18:45 → 3EAST 21:28
PROVIDERS: Internal Medicine; Internal Medicine Nephrology
PROC: 5A1D70Z Performance of Urinary Filtration, Intermittent, Less than 6 Hours Per Day (ICD-10-PCS; principal; 2018-02-16)
PROC: 30233N1 Transfusion of Nonautologous Red Blood Cells into Peripheral Vein, Percutaneous Approach (ICD-10-PCS; 2018-02-21)
DX: N17.9 Acute kidney failure, unspecified (principal); E87.6 Hypokalemia; I13.2 Hypertensive heart and chronic kidney disease with heart failure and with stage 5 chronic kidney disease, or end stage renal disease; I50.9 Heart failure, unspecified; N18.6 End stage renal disease; D61.818 Other pancytopenia; D63.1 Anemia in chronic kidney disease; E11.22 Type 2 diabetes mellitus with diabetic chronic kidney disease; I25.10 Atherosclerotic heart disease of native coronary artery without angina pectoris; E78.5 Hyperlipidemia, unspecified; I25.2 Old myocardial infarction; K21.9 Gastro-esophageal reflux disease without esophagitis; G43.909 Migraine, unspecified, not intractable, without status migrainosus; Z99.2 Dependence on renal dialysis; Z66 Do not resuscitate; Z79.02 Long term (current) use of antithrombotics/antiplatelets; Z79.4 Long term (current) use of insulin; Z79.82 Long term (current) use of aspirin; Z95.1 Presence of aortocoronary bypass graft; Z95.5 Presence of coronary angioplasty implant and graft; Z96.651 Presence of right artificial knee joint; Z91.041 Radiographic dye allergy status
CPT/HCPCS: 36415; 71046; 80048; 80053; 80069; 82948; 83880; 85014; 85018; 85025; 85027; 86704; 86706; 86803; 86850; 86900; 86901; 86920; 87077; 87086; 87186; 87340; 93005; 94760; 94799; 97530 GP; 99281; 99285; J0881; J1756; J2405; J3480; J7040; P9016

== ENCOUNTER 2018-05-19 14:22 | Day surgery (SDC) | payer OTHER, MEDICARE ==
[~2018-05-19] VITALS: Ht 149.9 cm; Wt 55.3 kg
[~2018-05-19 14:22] MED LIST changes: +HYDROMORPHONE HC2 MG PO; +PROCRIT10000 UNI1 IV
[2018-05-19 15:01] LABS: HEMATOCRIT 40.3 % (36.0-46.0); HEMOGLOBIN 13.5 G/DL (11.9-15.5); MCH 28.2 PG (29.0-34.0); MCHC 33.5 G/DL (30.0-36.0); MCV 84.1 FL (83-99); PLATELET COUNT 133 K/uL (156-360); RBC DIS.WIDTH-CV 13.7 % (11.8-14.6); RBC DIS.WIDTH-SD 42.2 % (39-53); RED BLOOD COUNT 4.79 M/uL (3.80-5.20); WHITE BLOOD COUNT 7.2 K/uL (4.1-10.2)
[2018-05-19 15:15] VITALS: BP 111/53
[2018-05-19 15:22] LABS: CHLORIDE 95 MEQ/L (99-109); POTASSIUM 3.8 MEQ/L (3.7-5.4); SODIUM 136 MEQ/L (136-147)
[2018-05-19 15:28] LABS: CREATININE 3.1 MG/DL (0.6-1.3); GFR ESTIMATE (CALCULATED) 15 mL/min/; GLUCOSE 208 mg/dL (70-99); UREA NITROGEN (BUN) 29 mg/dL (9-23)
[2018-05-19 21:27] VITALS: BP 145/67
[2018-05-19 22:05] VITALS: BP 137/87
== END 2018-05-19 22:07 | disposition home or self-care (01) ==
LOC: SDC 14:22
PROVIDERS: Surgery
PROC: 057Y3DZ Dilation of Upper Vein with Intraluminal Device, Percutaneous Approach (ICD-10-PCS; principal; 2018-05-19)
PROC: B51W1ZZ Fluoroscopy of Dialysis Shunt/Fistula using Low Osmolar Contrast (ICD-10-PCS; principal; 2018-05-19)
DX: T82.858A Stenosis of other vascular prosthetic devices, implants and grafts, initial encounter (principal); I13.2 Hypertensive heart and chronic kidney disease with heart failure and with stage 5 chronic kidney disease, or end stage renal disease; E11.22 Type 2 diabetes mellitus with diabetic chronic kidney disease; I50.9 Heart failure, unspecified; N18.6 End stage renal disease; Z99.2 Dependence on renal dialysis; Z79.4 Long term (current) use of insulin; I25.10 Atherosclerotic heart disease of native coronary artery without angina pectoris; I25.2 Old myocardial infarction; Z79.02 Long term (current) use of antithrombotics/antiplatelets; Z79.82 Long term (current) use of aspirin; I09.9 Rheumatic heart disease, unspecified; I83.90 Asymptomatic varicose veins of unspecified lower extremity; E78.00 Pure hypercholesterolemia, unspecified; G43.909 Migraine, unspecified, not intractable, without status migrainosus; M19.90 Unspecified osteoarthritis, unspecified site; Z91.041 Radiographic dye allergy status; Z88.8 Allergy status to other drugs, medicaments and biological substances; Y83.2 Surgical operation with anastomosis, bypass or graft as the cause of abnormal reaction of the patient, or of later complication, without mention of misadventure at the time of the procedure
CPT/HCPCS: 80048; 82948; 85027; 87641; C1725; C1769; C1874; C1894; J1644